=== PATIENT | male | born 1980 | race Caucasian/White ===

== ENCOUNTER → 2016-11-19 | Outpatient (CLI) | payer BC ==
--- NOTE | 2016-11-22 08:37 | MRI ---
HISTORY: Neck pain, left radiculopathy Study: MRI cervical spine without contrast Comparison: None Technique: Multiplanar multisequence MRI of the cervical spine was obtained utilizing standard depar tmental protocol. Findings: Alignment of the cervical spine is maintained. No abnormal signal characteristics of the bone marro w can be identified. No evidence for fracture or significant bone or edema can be seen. The surrou nding soft tissues are unremarkable. The cervical spinal cord is normal in size and configuration a nd without foci of abnormal signal. C2 -- C3: No evidence for compressive disc disease. The neural foramina are patent. C3 -- C4: No evidence for compressive disc disease. The neural foramina are patent. C4 -- C5: No evidence for compressive disc disease. The neural foramina are patent. C5 -- C6: No evidence for compressive disc disease. The neural foramina are patent. C6 -- C7: No evidence for compressive disc disease. The neural foramina are patent. C7 -- T1: No evidence for compressive disc disease. The neural foramina are patent. IMPRESSION: No evidence for compressive disc disease or compresses spondylitic change at any level Reported By:
== END ==
LOC: RAD 15:56
PROVIDERS: ATTEND Internal Medicine
DX: M54.12 Radiculopathy, cervical region (principal)
CPT/HCPCS: 72141

== ENCOUNTER → 2016-12-08 | Outpatient (CLI) | payer BC ==
[~2016-12-08] MED LIST: NS 100 ML IV 100 ML IV ONE
--- NOTE | 2016-12-09 09:00 | CT ---
HEAD CT WITHOUT IV CONTRAST CLINICAL INDICATION: Headache TECHNIQUE: Axial CT images from skull base to vertex without IV contrast.Dose reduction techniques in cluding Automated Exposure Control (AEC) and adjustment of mA and kV were utlized. COMPARISON: None FINDINGS: There is no abnormal brain parenchymal density. There is no evidence of acute infarction, intracrani al hemorrhage, mass or mass effect, or abnormal extra-axial collection. The density of the larger dur al venous sinuses is normal. The ventricles are normal in size, shape and position. The skull base an d calvarium are normal. The included paranasal sinuses and mastoid air cells are predominantly clear. IMPRESSION: 1. No acute intracranial abnormality. Reported By:
--- NOTE | 2016-12-09 09:03 | CT ---
CT OF THE ABDOMEN AND PELVIS WITH CONTRAST HISTORY: Right lower quadrant pain Comparison: None Technique: Multiple axial images of the abdomen and pelvis were obtained from the lung bases to the pubic symphy sis follow the administration of IV contrast as well as oral contrast. Dose reduction techniques inc luding Automated Exposure Control (AEC) and adjustment of mA and kV were utlized. Findings: The heart is normal in size. There is no pericardial effusion. Lung bases are clear without focal con solidation, pleural effusion or pneumothorax. Liver and spleen are normal in size, enhancement characteristics and contour. No focal lesions. The p ortal vein is patent. No ductal dilitation. Gallbladder is present. No calcified gallstones or gallbl adder wall thickening. The pancreas is unremarkable. Adrenal glands are normal. Kidneys enhance symme trically without hydronephrosis or nephrolithiasis. No bowel obstruction or inflammation. Normal appendix No abnormal appearing mesenteric or retroperito javier lymph nodes. No free fluid or fluid collections. The bladder is normal in appearance. Prostate not enlarged. No free fluid or abnormal pelvic lymph no milton. No aggressive osseous lesions. IMPRESSION: 1. Negative CT of the abdomen and pelvis. Reported By:
== END ==
LOC: RAD 14:14
PROVIDERS: ATTEND Nurse Practitioner
DX: R60.1 Generalized edema (principal); R10.84 Generalized abdominal pain; G44.52 New daily persistent headache (NDPH)
CPT/HCPCS: 70450; 74177; A4222